=== PATIENT | female | born 1955 | race African-American/Black ===

== ENCOUNTER 2021-03-07 22:35 | Inpatient (IN) | payer OTHER ==
[2021-03-07 23:21] LABS: BASO % 0.5 % (0-2.0); EOS % 3.6 % (0-4.5); HEMATOCRIT 30.1 % (32.4-45.2); HEMOGLOBIN 9.8 GM/dL (10.7-15.3); LYMPH % 6.3 % (8-40); MCH 26.5 pg (25.7-33.7); MCHC 32.4 g/dl (32.0-36.0); MEAN CELL VOLUME 81.8 fl (80-96); MONO % 7.3 % (3.8-10.2); NEUT % 82.3 % (42.8-82.8); PLATELET COUNT 149 10^3/uL (134-434); RBC 3.68 M/mm3 (3.60-5.2); RDW 15.8 % (11.6-15.6); VENOUS BASE EXCESS 2.9 mmol/L (-2-2); VENOUS O2 SATURATION 71.6 % (70-80); VENOUS PCO2 52.2 mmHg (38-52); VENOUS PH 7.364 (7.310-7.410); WHITE BLOOD COUNT 9.9 K/mm3 (4.0-10.0)
[2021-03-07 23:26] LABS: INR 0.98 (0.83-1.09); PROTHROMBIN TIME (PATIENT) 11.5 SEC (9.7-13.0)
[2021-03-07 23:29] LABS: ACTIVATED PTT 29.7 SECONDS (25.2-36.5)
[2021-03-07 23:42] LABS: CHLORIDE 99 mmol/L (98-107); SODIUM 138 mmol/L (136-145)
[2021-03-07 23:44] LABS: ALBUMIN 3.5 g/dl (3.4-5.0); BLOOD UREA NITROGEN 42.5 mg/dL (7-18); CALCIUM 8.7 mg/dL (8.5-10.1); CO2 29 mmol/L (21-32)
[2021-03-07 23:45] LABS: GLUCOSE,RANDOM 228 mg/dL (74-106); MAGNESIUM 2.2 mg/dL (1.8-2.4)
[2021-03-07 23:47] LABS: SGOT/AST 28 U/L (15-37); SGPT/ALT 36 U/L (13-61)
[2021-03-07 23:49] LABS: BILIRUBIN,TOTAL 0.5 mg/dL (0.2-1); TOT PROT 7.4 g/dl (6.4-8.2)
[2021-03-07 23:50] LABS: ALK PHOS 140 U/L (45-117)
[2021-03-07 23:52] LABS: N-TERMINAL BNP 21462.4 pg/ml (5-125)
[2021-03-08] MEDS ORDERED: NITROGLYCERIN 2% OINTMENT - 1GM PACKET TD ONE ×4 (00:18→02:15)
[2021-03-08 00:38] LABS: ANION GAP 9 MMOL/L (8-16); CREATININE 10.1 mg/dL (0.55-1.3)
[2021-03-08] MEDS ORDERED: CALCIUM GLUCONATE 10% - 1,000 MG/10 ML VIAL IVPUSH ONE (00:45)
[2021-03-08] MEDS ORDERED: INSULIN REGULAR HUMAN 100 UNITS/ML *VIAL IVPUSH ONE (00:45)
[2021-03-08] MEDS ORDERED: SODIUM BICARBONATE 8.4% 50 MEQ/50 ML DISP.SYRIN IVPUSH ONE (00:45)
[2021-03-08] MEDS ORDERED: DEXTROSE 50%-WATER - 25 GM/50 ML VIAL IVPUSH ONE (00:47)
[2021-03-08] MEDS ORDERED: CALCIUM GLUCONATE 10% - 1,000 MG/10 ML VIAL ONE (01:12)
[2021-03-08] MEDS ORDERED: SODIUM BICARBONATE 8.4% 50 MEQ/50 ML VIAL ONE (01:13)
[2021-03-08] MEDS ORDERED: DEXTROSE 50%-WATER 25 GM/50 ML DISP.SYRIN ONE (01:13)
[2021-03-08] MEDS ORDERED: SODIUM ZIRCONIUM CYCLOSILICATE (LOKELMA) 5 GM PACKET ONE (01:13)
[2021-03-08] MEDS ORDERED: SODIUM ZIRCONIUM CYCLOSILICATE (LOKELMA) 5 GM PACKET PO ONE (01:32)
[2021-03-08] MEDS ORDERED: amLODIPine BESYLATE 5 MG TABLET (FP) PO ONE (03:57)
[2021-03-08] MEDS ORDERED: HEPARIN NA (PORCINE) 5,000 UNITS/ML 1ML VIAL ONE (06:25)
[2021-03-08] MEDS ORDERED: amLODIPine BESYLATE 5 MG TABLET (FP) ONE (06:25)
[2021-03-08] MEDS: HEPARIN NA (PORCINE) 5,000 UNITS/ML 1ML VIAL SQ SCH ×2 (06:56→22:57)
[2021-03-08 08:08] LABS: HEMATOCRIT 26.8 % (32.4-45.2); HEMOGLOBIN 8.7 GM/dL (10.7-15.3); MCH 26.7 pg (25.7-33.7); MCHC 32.7 g/dl (32.0-36.0); MEAN CELL VOLUME 81.8 fl (80-96); MEAN PLT VOLUME 8.5 fl (7.5-11.1); PLATELET COUNT 144 10^3/uL (134-434); RBC 3.27 M/mm3 (3.60-5.2); RDW 15.9 % (11.6-15.6); WHITE BLOOD COUNT 9.1 K/mm3 (4.0-10.0)
[2021-03-08 08:23] LABS: CHLORIDE 99 mmol/L (98-107); SODIUM 140 mmol/L (136-145)
[2021-03-08 08:26] LABS: ANION GAP 11 MMOL/L (8-16); BLOOD UREA NITROGEN 52.8 mg/dL (7-18); CALCIUM 9.5 mg/dL (8.5-10.1); CO2 30 mmol/L (21-32); GLUCOSE,RANDOM 124 mg/dL (74-106); MAGNESIUM 2.4 mg/dL (1.8-2.4)
[2021-03-08] MEDS ORDERED: LABETALOL HCL 100 MG TABLET (FP) PO ONE (08:29)
[2021-03-08 08:30] LABS: PHOSPHOROUS 3.1 mg/dL (2.5-4.9)
[2021-03-08 08:33] LABS: CREATININE 10.8 mg/dL (0.55-1.3)
[2021-03-08] MEDS: SEVELAMER CARBONATE 800 MG TAB (FP) PO SCH (09:01)
[2021-03-08] MEDS ORDERED: DEXAMETHASONE SOD PHOSPHATE 10 MG/1 ML VIAL ONE (09:24)
[2021-03-08] MEDS ORDERED: LABETALOL HCL 100 MG TABLET (FP) ONE (09:26)
[2021-03-08 09:38] LABS: ANISOCYTOSIS 0; HELMET CELLS 0; HOWELL-JOLLY BODIES 0; MACROCYTOSIS 0; OVALOCYTE 0; PLATELET ESTIMATE DECREASED; ROULEAU 0; SICKELED CELLS 0; TARGET CELLS 0; TEAR DROP CELLS 0; TOXIC GRANULATION 0
[2021-03-08] MEDS ORDERED: DEXAMETHASONE SOD PHOSPHATE 10 MG/1 ML VIAL IVPUSH SCH (10:00)
[2021-03-08] MEDS ORDERED: SODIUM ZIRCONIUM CYCLOSILICATE (LOKELMA) 5 GM PACKET PO SCH (10:00)
[2021-03-08] MEDS ORDERED: ALBUTEROL SO4 HFA INHALER IH PRN (10:48)
[2021-03-08] MEDS ORDERED: HEPARIN NA (PORCINE) 5,000 UNITS/ML 1ML VIAL IVPUSH ONE (12:41)
[2021-03-08] MEDS ORDERED: PT OWN MED DRAWER 7, Y5N ONE (13:37)
[2021-03-08] MEDS ORDERED: ACETAMINOPHEN 325 MG TABLET (FP) PO PRN (15:58)
[2021-03-08] MEDS ORDERED: SODIUM CHLORIDE 250 ML IV PRN ×2 (16:15→16:16)
[2021-03-08] MEDS: INSULIN SLIDING SCALE (NOVOLOG) 1 VIAL SQ SCH (22:58)
[2021-03-08] MEDS: LABETALOL HCL 100 MG TABLET (FP) PO SCH (22:59)
[2021-03-08] MEDS: BUDESONIDE/FORMETEROL FUMARATE 160/4.5 mcg INHALER IH SCH (23:35)
[2021-03-09 02:06] VITALS: BMI 26.2
[2021-03-09] MEDS: HEPARIN NA (PORCINE) 5,000 UNITS/ML 1ML VIAL SQ SCH ×3 (05:09→21:36)
[2021-03-09] MEDS: LABETALOL HCL 100 MG TABLET (FP) PO SCH ×2 (10:20→21:36)
[2021-03-09] MEDS: NIFEdipine E.R 60 MG TABLET PO SCH (10:20)
[2021-03-09] MEDS: SEVELAMER CARBONATE 800 MG TAB (FP) PO SCH ×3 (10:20→16:57)
[2021-03-09] MEDS: BUDESONIDE/FORMETEROL FUMARATE 160/4.5 mcg INHALER IH SCH ×2 (10:20→21:36)
[2021-03-09] MEDS: LISINOPRIL 20 MG TABLET PO SCH (10:20)
[2021-03-09 11:25] LABS: HEMATOCRIT 26.5 % (32.4-45.2); HEMOGLOBIN 8.6 GM/dL (10.7-15.3); MCH 26.3 pg (25.7-33.7); MCHC 32.5 g/dl (32.0-36.0); MEAN CELL VOLUME 81.1 fl (80-96); MEAN PLT VOLUME 9.3 fl (7.5-11.1); PLATELET COUNT 145 10^3/uL (134-434); RBC 3.27 M/mm3 (3.60-5.2); RDW 15.5 % (11.6-15.6); WHITE BLOOD COUNT 7.3 K/mm3 (4.0-10.0)
[2021-03-09 11:43] LABS: CHLORIDE 98 mmol/L (98-107); SODIUM 141 mmol/L (136-145)
[2021-03-09] MEDS: INSULIN SLIDING SCALE (NOVOLOG) 1 VIAL SQ SCH ×3 (11:45→21:36)
[2021-03-09 11:56] LABS: BLOOD UREA NITROGEN 39.9 mg/dL (7-18)
[2021-03-09 11:58] LABS: ALBUMIN 3.4 g/dl (3.4-5.0); ANION GAP 10 MMOL/L (8-16); CALCIUM 9.4 mg/dL (8.5-10.1); CO2 33 mmol/L (21-32); GLUCOSE,RANDOM 94 mg/dL (74-106)
[2021-03-09 11:59] LABS: TOTAL IRON BINDING CAPACITY 161 ug/dL (250-450)
[2021-03-09 12:00] LABS: PHOSPHOROUS 5.8 mg/dL (2.5-4.9); SGPT/ALT 36 U/L (13-61)
[2021-03-09 12:01] LABS: BILIRUBIN,TOTAL 0.5 mg/dL (0.2-1); IRON SERUM 108 ug/dL (50-175); SGOT/AST 24 U/L (15-37); TOT PROT 6.6 g/dl (6.4-8.2)
[2021-03-09 12:02] LABS: ALK PHOS 113 U/L (45-117)
[2021-03-09 12:28] LABS: MAGNESIUM 2.4 mg/dL (1.8-2.4)
[2021-03-09 12:42] LABS: LDH 190 U/L (84-246)
[2021-03-09 12:43] LABS: CREATININE 7.8 mg/dL (0.55-1.3)
[2021-03-09] MEDS ORDERED: SODIUM CHLORIDE 250 ML IV PRN (12:47)
[2021-03-09] MEDS ORDERED: BENZOCAINE/MENTH/CETYLPYRD CL 1 EACH LOZENGE MM PRN (13:28)
[2021-03-10] MEDS: INSULIN SLIDING SCALE (NOVOLOG) 1 VIAL SQ SCH ×6 (06:13→21:20)
[2021-03-10] MEDS: HEPARIN NA (PORCINE) 5,000 UNITS/ML 1ML VIAL SQ SCH ×4 (06:15→21:20)
[2021-03-10] MEDS: LABETALOL HCL 100 MG TABLET (FP) PO SCH ×2 (10:32→21:19)
[2021-03-10] MEDS: LISINOPRIL 20 MG TABLET PO SCH (10:34)
[2021-03-10] MEDS: NIFEdipine E.R 60 MG TABLET PO SCH ×2 (10:34→12:26)
[2021-03-10] MEDS: SEVELAMER CARBONATE 800 MG TAB (FP) PO SCH ×4 (10:34→17:24)
[2021-03-10] MEDS: BUDESONIDE/FORMETEROL FUMARATE 160/4.5 mcg INHALER IH SCH ×3 (10:34→21:20)
[2021-03-10] MEDS ORDERED: EPOETIN ALFA-EPBX 4,000 UNIT/ML VIAL SQ ONE (12:47)
[2021-03-10] MEDS ORDERED: SODIUM CHLORIDE 250 ML IV PRN (17:13)
[2021-03-10] MEDS ORDERED: HEPARIN NA (PORCINE) 5,000 UNITS/ML 1ML VIAL IVPUSH ONE (17:15)
[2021-03-10] MEDS ORDERED: EPOETIN ALFA-EPBX 3,000 UNIT, EPOETIN ALFA-EPBX 2,000 UNIT IVPUSH ONE (17:15)
[2021-03-10] MEDS ORDERED: INSULIN SLIDING SCALE (NOVOLOG) 1 VIAL SQ ONE (17:55)
[2021-03-10 18:47] LABS: HEMATOCRIT 24.5 % (32.4-45.2); HEMOGLOBIN 7.9 GM/dL (10.7-15.3); MCH 26.1 pg (25.7-33.7); MCHC 32.2 g/dl (32.0-36.0); MEAN CELL VOLUME 81.2 fl (80-96); MEAN PLT VOLUME 9.4 fl (7.5-11.1); PLATELET COUNT 137 10^3/uL (134-434); RBC 3.01 M/mm3 (3.60-5.2); RDW 15.3 % (11.6-15.6)
[2021-03-10 18:52] LABS: CHLORIDE 95 mmol/L (98-107); SODIUM 136 mmol/L (136-145)
[2021-03-10 18:53] LABS: CALCIUM 8.6 mg/dL (8.5-10.1)
[2021-03-10 18:55] LABS: ANION GAP 12 MMOL/L (8-16); CO2 29 mmol/L (21-32); GLUCOSE,RANDOM 127 mg/dL (74-106)
[2021-03-10 19:08] LABS: BLOOD UREA NITROGEN 70.8 mg/dL (7-18); CREATININE 10.9 mg/dL (0.55-1.3)
[2021-03-11] MEDS: HEPARIN NA (PORCINE) 5,000 UNITS/ML 1ML VIAL SQ SCH ×3 (05:22→21:03)
[2021-03-11] MEDS: INSULIN SLIDING SCALE (NOVOLOG) 1 VIAL SQ SCH ×4 (06:46→21:03)
[2021-03-11] MEDS: SEVELAMER CARBONATE 800 MG TAB (FP) PO SCH ×3 (07:58→16:50)
[2021-03-11] MEDS: LABETALOL HCL 100 MG TABLET (FP) PO SCH ×2 (10:13→21:03)
[2021-03-11] MEDS: LISINOPRIL 20 MG TABLET PO SCH (10:13)
[2021-03-11] MEDS: NIFEdipine E.R. 90 MG TABLET PO SCH (10:13)
[2021-03-11] MEDS: BUDESONIDE/FORMETEROL FUMARATE 160/4.5 mcg INHALER IH SCH ×2 (10:14→21:04)
[2021-03-11 10:24] LABS: HEMATOCRIT 26.4 % (32.4-45.2); HEMOGLOBIN 8.4 GM/dL (10.7-15.3); MCHC 31.9 g/dl (32.0-36.0); MEAN CELL VOLUME 81.7 fl (80-96); MEAN PLT VOLUME 9.1 fl (7.5-11.1); PLATELET COUNT 136 10^3/uL (134-434); RBC 3.24 M/mm3 (3.60-5.2); WHITE BLOOD COUNT 4.3 K/mm3 (4.0-10.0)
[2021-03-11 10:54] LABS: CALCIUM 8.8 mg/dL (8.5-10.1)
[2021-03-11 10:59] LABS: BLOOD UREA NITROGEN 35.5 mg/dL (7-18); CREATININE 7.3 mg/dL (0.55-1.3)
[2021-03-11] MEDS ORDERED: PT OWN MED DRAWER 7, Y5N ONE (12:06)
[2021-03-11] MEDS: MELATONIN 5 MG TABLETS PO PRN (21:03)
[2021-03-12] MEDS: INSULIN SLIDING SCALE (NOVOLOG) 1 VIAL SQ SCH ×4 (06:13→21:14)
[2021-03-12] MEDS: HEPARIN NA (PORCINE) 5,000 UNITS/ML 1ML VIAL SQ SCH ×3 (06:13→21:14)
[2021-03-12] MEDS: SEVELAMER CARBONATE 800 MG TAB (FP) PO SCH ×3 (08:51→16:55)
[2021-03-12 10:28] LABS: MEAN CELL VOLUME 81.3 fl (80-96); PLATELET COUNT 131 10^3/uL (134-434); RBC 3.08 M/mm3 (3.60-5.2); RDW 15.6 % (11.6-15.6); WHITE BLOOD COUNT 3.8 K/mm3 (4.0-10.0)
[2021-03-12 10:44] LABS: CHLORIDE 97 mmol/L (98-107); SODIUM 136 mmol/L (136-145)
[2021-03-12 10:48] LABS: ANION GAP 8 MMOL/L (8-16); BLOOD UREA NITROGEN 53.8 mg/dL (7-18); CALCIUM 8.6 mg/dL (8.5-10.1); CO2 32 mmol/L (21-32); GLUCOSE,RANDOM 180 mg/dL (74-106)
[2021-03-12 11:02] LABS: CREATININE 9.9 mg/dL (0.55-1.3)
[2021-03-12] MEDS: LABETALOL HCL 100 MG TABLET (FP) PO SCH ×2 (11:36→21:13)
[2021-03-12] MEDS: NIFEdipine E.R. 90 MG TABLET PO SCH (11:36)
[2021-03-12] MEDS: BUDESONIDE/FORMETEROL FUMARATE 160/4.5 mcg INHALER IH SCH ×2 (11:37→21:14)
[2021-03-12] MEDS: LISINOPRIL 20 MG TABLET PO SCH (11:37)
[2021-03-12] MEDS ORDERED: SODIUM CHLORIDE 250 ML IV PRN (14:56)
[2021-03-12] MEDS: MELATONIN 5 MG TABLETS PO PRN (21:13)
[2021-03-13] MEDS: HEPARIN NA (PORCINE) 5,000 UNITS/ML 1ML VIAL SQ SCH ×3 (06:46→21:58)
[2021-03-13] MEDS: INSULIN SLIDING SCALE (NOVOLOG) 1 VIAL SQ SCH ×4 (06:47→21:59)
[2021-03-13] MEDS: SEVELAMER CARBONATE 800 MG TAB (FP) PO SCH ×3 (08:20→17:24)
[2021-03-13 12:04] LABS: HEMATOCRIT 25.1 % (32.4-45.2); MCH 26.1 pg (25.7-33.7); MCHC 31.9 g/dl (32.0-36.0); MEAN CELL VOLUME 81.6 fl (80-96); MEAN PLT VOLUME 8.7 fl (7.5-11.1); PLATELET COUNT 141 10^3/uL (134-434); RBC 3.08 M/mm3 (3.60-5.2); RDW 15.5 % (11.6-15.6); WHITE BLOOD COUNT 4.3 K/mm3 (4.0-10.0)
[2021-03-13] MEDS: BUDESONIDE/FORMETEROL FUMARATE 160/4.5 mcg INHALER IH SCH ×2 (12:29→21:58)
[2021-03-13 12:39] LABS: CHLORIDE 95 mmol/L (98-107); SODIUM 137 mmol/L (136-145)
[2021-03-13 12:47] LABS: CALCIUM 8.9 mg/dL (8.5-10.1)
[2021-03-13 12:48] LABS: ANION GAP 12 MMOL/L (8-16); BLOOD UREA NITROGEN 71.5 mg/dL (7-18); CO2 29 mmol/L (21-32); GLUCOSE,RANDOM 160 mg/dL (74-106)
[2021-03-13 12:55] LABS: CREATININE 12.4 mg/dL (0.55-1.3)
[2021-03-13] MEDS ORDERED: EPOETIN ALFA-EPBX 20,000 UNIT/ML VIAL IVPUSH ONE (15:00)
[2021-03-13] MEDS: LISINOPRIL 20 MG TABLET PO SCH (15:06)
[2021-03-13] MEDS: LABETALOL HCL 100 MG TABLET (FP) PO SCH (15:06)
[2021-03-13] MEDS: NIFEdipine E.R. 90 MG TABLET PO SCH (15:07)
[2021-03-14] MEDS: LABETALOL HCL 100 MG TABLET (FP) PO SCH ×2 (00:51→12:04)
[2021-03-14] MEDS: HEPARIN NA (PORCINE) 5,000 UNITS/ML 1ML VIAL SQ SCH (05:45)
[2021-03-14] MEDS: INSULIN SLIDING SCALE (NOVOLOG) 1 VIAL SQ SCH ×2 (06:02→12:05)
[2021-03-14] MEDS: SEVELAMER CARBONATE 800 MG TAB (FP) PO SCH ×2 (09:18→12:04)
[2021-03-14] MEDS ORDERED: PT OWN MED DRAWER 7, Y5N ONE (11:43)
[2021-03-14] MEDS: NIFEdipine E.R. 90 MG TABLET PO SCH (12:04)
[2021-03-14] MEDS: LISINOPRIL 20 MG TABLET PO SCH (12:04)
[2021-03-14] MEDS: BUDESONIDE/FORMETEROL FUMARATE 160/4.5 mcg INHALER IH SCH (12:05)
[2021-03-14] MEDS ORDERED: ONDANSETRON 4 MG TABLET PO ONE (14:04)
[2021-03-14 14:58] VITALS: BP 150/55; PULSE 66; TEMP 98.4
== END 2021-03-14 15:11 | disposition home or self-care (01) | DRG 291 ==
LOC: JER 22:35 → JERBED 03-08 00:14 → J5S 03-08 22:07
PROVIDERS: ADMIT Hospitalist; ATTEND Internal Medicine
PROC: 5A1D70Z Performance of Urinary Filtration, Intermittent, Less than 6 Hours Per Day (ICD-10-PCS; principal; 2021-03-08)
PROC: 5A1D70Z Performance of Urinary Filtration, Intermittent, Less than 6 Hours Per Day (ICD-10-PCS; 2021-03-10)
PROC: 5A1D70Z Performance of Urinary Filtration, Intermittent, Less than 6 Hours Per Day (ICD-10-PCS; 2021-03-13)
DX: I13.2 Hypertensive heart and chronic kidney disease with heart failure and with stage 5 chronic kidney disease, or end stage renal disease (principal); N18.6 End stage renal disease; I50.33 Acute on chronic diastolic (congestive) heart failure; J96.01 Acute respiratory failure with hypoxia; J81.0 Acute pulmonary edema; U07.1 COVID-19; I16.1 Hypertensive emergency; J45.901 Unspecified asthma with (acute) exacerbation; E87.5 Hyperkalemia; I12.0 Hypertensive chronic kidney disease with stage 5 chronic kidney disease or end stage renal disease; E11.22 Type 2 diabetes mellitus with diabetic chronic kidney disease; Z99.2 Dependence on renal dialysis; E87.70 Fluid overload, unspecified
CPT/HCPCS: 36415; 71045-TC-FY; 80048; 80053; 82550; 82553; 82728; 82803; 82962; 83036; 83540; 83550; 83615; 83735; 83880; 84100; 84484; 85025; 85027; 85610; 85730; 86140; 86803; 87340; 87804; 93005; 93010; 94761; 99285-25; C9803; J1100; J1644; Q5106; U0003; U0005